=== PATIENT | male | born 1995 | race Caucasian/White ===

== ENCOUNTER 2017-04-24 23:41 | Inpatient (IN) | payer MEDICARE ==
--- NOTE | 2017-04-25 00:28 | PDOC ---
History of Present Illness - General History Source: Patient Exam Limitations: No Limitations - History of Present Illness Initial Comments: Patient is an otherwise healthy 21 year old male with one day of left sided neck pain and swelling. First noticed pain in the left side of his neck one day ago that began to feel swollen. The pain is isolated to the left-sided below the angle of the mandible. Denies any trauma, dental procedures, tooth pain, mouth pain, sick contacts Denies fever, chills 04/25/17 00:41 <Ebenezer Higgins - Last Filed: 04/25/17 04:27> <Sanjuana Ramos - Last Filed: 04/25/17 04:59> - General Stated Complaint: SWOLLEN NECK Time Seen by Provider: 04/25/17 00:27 Past History - Suicide/Smoking/Psychosocial Hx Smoking Status: No Smoking History: Never smoked Number of Cigarettes Smoked Daily: 0 <Ebenezer Higgins - Last Filed: 04/25/17 04:27> <Sanjuana Ramos - Last Filed: 04/25/17 04:59> - Past Medical History Allergies/Adverse Reactions: Allergies Allergy/AdvReac Type Severity Reaction Status Date / Time No Known Allergies Allergy Verified 04/25/17 00:30 Home Medications: Ambulatory Orders Oxycodone HCl/Acetaminophen [Percocet 5/325 -] 1 combo PO Q6H #15 tablet *Physical Exam - Vital Signs Last Vital Signs Temp Pulse Resp BP Pulse Ox 98.6 F 70 20 125/63 99 04/25/17 00:30 04/25/17 00:30 04/25/17 00:30 04/25/17 00:30 04/25/17 04:35 <Sanjuana Ramos - Last Filed: 04/25/17 04:59> ED Treatment Course - LABORATORY CBC & Chemistry Diagram: 04/25/17 00:47 04/25/17 00:47 - RADIOLOGY Radiograph Interpretation: 04/25/17 03:48 EXAM: CT SOFT TISSUE NECK WITHOUT CONTRAST HISTORY:Left-sided pain COMPARISON: None. FINDINGS:The visualized intracranial and intraorbital contents are normal. Normal salivary glands and thyroid gland. There is soft tissue edema adjacent to posterior left mandible involving the platysma muscle and extending to the sternocleidomastoid muscle. There is ill- defined fluid but no abscess. Infection is suspected. No concerning adenopathy. Normal parapharyngeal retropharyngeal space. Normal epiglottis and vocal cords. Lung apices are clear. Sinuses and mastoid air cells clear. The bones are normal. IMPRESSION: Probable soft tissue infection involving the left aspect of the neck without abscess <Ebenezer Higgins - Last Filed: 04/25/17 04:27> - LABORATORY CBC & Chemistry Diagram: 04/25/17 00:47 04/25/17 00:47 - ADDITIONAL ORDERS Additional order review: Laboratory Results 04/25/17 04/25/17 04:14 00:47 PT with INR 12.10 H INR 1.07 Sodium 141 Potassium 4.1 Chloride 105 Carbon Dioxide 28 Anion Gap 8 BUN 16 Creatinine 1.1 D Creat Clearance w eGFR > 60 Random Glucose 93 Calcium 8.3 L Total Bilirubin 0.3 D AST 17 D ALT 26 Alkaline Phosphatase 54 D Total Protein 6.8 Albumin 3.8 04/25/17 00:47 RBC 4.62 MCV 90.6 MCHC 33.8 RDW 13.3 MPV 11.1 Neutrophils % 66.0 Lymphocytes % 22.4 D Monocytes % 9.7 Eosinophils % 1.6 Basophils % 0.3 - RADIOLOGY Radiology Studies Ordered: Category Date Time Status CHEST PA & LAT [RAD] Stat Radiology 04/25/17 04:40 Ordered - Medications Given in the ED: ED Medications Discontinued Medications Generic Name Dose Route Start Last Admin Trade Name Freq PRN Reason Stop Dose Admin Acetaminophen 1,000 mg 04/25/17 01:12 04/25/17 01:21 Tylenol - PO 04/25/17 01:13 1,000 mg ONCE ONE Administration Clindamycin Phosphate 300 mg/ 50 mls @ 100 mls/hr 04/25/17 04:06 04/25/17 04:31 Dextrose IVPB 04/25/17 04:35 Not Given ONCE ONE Metronidazole 100 mls @ 100 mls/hr 04/25/17 04:07 04/25/17 04:31 Flagyl 500mg Premixed Ivpb - IVPB 04/25/17 05:06 Not Given ONCE ONE <Sanjuana Ramos - Last Filed: 04/25/17 04:59> Medical Decision Making - Medical Decision Making 21 year old male with left sided neck pain and swelling for one day ddx abscess, parotid stone, sialadenitis 04/25/17 01:29 CBC WBC 14.3 K/mm3 (4.0-10.0) H D 04/25/17 00:47 RBC 4.62 M/mm3 (4.00-5.60) 04/25/17 00:47 Hgb 14.1 GM/dL (11.7-16.9) 04/25/17 00:47 Hct 41.9 % (35.4-49) 04/25/17 00:47 MCV 90.6 fl (80-96) 04/25/17 00:47 MCH 30.6 pg (25.7-33.7) 04/25/17 00:47 MCHC 33.8 g/dl (32.0-35.9) 04/25/17 00:47 RDW 13.3 % (11.9-15.9) 04/25/17 00:47 Plt Count 143 K/MM3 (134-434) 04/25/17 00:47 MPV 11.1 fl (7.5-11.1) 04/25/17 00:47 Neutrophils % 66.0 % (42.8-82.8) 04/25/17 00:47 Lymphocytes % 22.4 % (8-40) D 04/25/17 00:47 Monocytes % 9.7 % (3.8-10.2) 04/25/17 00:47 Eosinophils % 1.6 % (0-4.5) 04/25/17 00:47 Basophils % 0.3 % (0-2.0) 04/25/17 00:47 Significant for mild leukocytosis, concern for infection CMP Sodium 141 mmol/L (136-145) 04/25/17 00:47 Potassium 4.1 mmol/L (3.5-5.1) 04/25/17 00:47 Chloride 105 mmol/L (98-107) 04/25/17 00:47 Carbon Dioxide 28 mmol/L (21-32) 04/25/17 00:47 Anion Gap 8 (8-16) 04/25/17 00:47 BUN 16 mg/dL (7-18) 04/25/17 00:47 Creatinine 1.1 mg/dL (0.7-1.3) D 04/25/17 00:47 Creat Clearance w eGFR > 60 (>60) 04/25/17 00:47 Random Glucose 93 mg/dL (74-106) 04/25/17 00:47 Calcium 8.3 mg/dL (8.5-10.1) L 04/25/17 00:47 Total Bilirubin 0.3 mg/dL (0.2-1.0) D 04/25/17 00:47 AST 17 U/L (15-37) D 04/25/17 00:47 ALT 26 U/L (12-78) 04/25/17 00:47 Alkaline Phosphatase 54 U/L (45-117) D 04/25/17 00:47 Total Protein 6.8 g/dl (6.4-8.2) 04/25/17 00:47 Albumin 3.8 g/dl (3.4-5.0) 04/25/17 00:47 Grossly within normal limits, mild hypocalcemia 04/25/17 02:25 CT IMPRESSION: Probable soft tissue infection involving the left aspect of the neck without abscess Infection developing over two days Patient should be started on abx and admitted for evaluation by ENT 04/25/17 04:27 Spoke with ENT, Dr. Tavarez, who agrees the the quick onset and location of the infection warrents IV abx Recommends the following - Admission - ID consult - ENT consult <Ebenezer Higgins - Last Filed: 04/25/17 04:27> *DC/Admit/Observation/Transfer - Discharge Dispostion Admit: Yes <Ebenezer Higgins - Last Filed: 04/25/17 04:27> - Discharge Dispostion Admit: Yes <Sanjuana Ramos - Last Filed: 04/25/17 04:59> Diagnosis at time of Disposition: Submandibular space infection - Discharge Dispostion Condition at time of disposition: Guarded
[2017-04-25 00:59] LABS: BASOPHIL 0.3 % (0-2.0); EOSINOPHIL 1.6 % (0-4.5); MCH 30.6 pg (25.7-33.7); MCHC 33.8 g/dl (32.0-35.9); MEAN CELL VOLUME 90.6 fl (80-96); MEAN PLT VOLUME 11.1 fl (7.5-11.1); PLATELET COUNT 143 K/MM3 (134-434); RDW 13.3 % (11.9-15.9); WHITE BLOOD COUNT 14.3 K/mm3 (4.0-10.0)
[2017-04-25] MEDS ORDERED: ACETAMINOPHEN 500 MG TABLET (FP) PO ONE (01:12)
[2017-04-25] MEDS ORDERED: ACETAMINOPHEN 325 MG TABLET (FP) ONE (01:20)
[2017-04-25 01:22] LABS: ALBUMIN 3.8 g/dl (3.4-5.0); ANION GAP 8 (8-16); CALCIUM 8.3 mg/dL (8.5-10.1); CO2 28 mmol/L (21-32); CREATININE 1.1 mg/dL (0.7-1.3); GLUCOSE,RANDOM 93 mg/dL (74-106); SGOT/AST 17 U/L (15-37); SGPT/ALT 26 U/L (12-78)
[2017-04-25 01:23] LABS: ALK PHOS 54 U/L (45-117); BILIRUBIN,TOTAL 0.3 mg/dL (0.2-1.0); TOT PROT 6.8 g/dl (6.4-8.2)
[2017-04-25] MEDS ORDERED: CLINDAMYCIN IVPB 300 MG in DEXTROSE 5%-WATER - 48 ML IVPB ONE (04:06)
[2017-04-25] MEDS ORDERED: METRONIDAZOLE 500 MG PREMIXED 100 ML IVPB ONE (04:07)
--- NOTE | 2017-04-25 04:13 | PN ---
Teaching Attending Note Name of Resident: Jnae Miller ATTENDING PHYSICIAN STATEMENT I saw and evaluated the patient. I reviewed the resident's note and discussed the case with the resident. I agree with the resident's findings and plan as documented. SUBJECTIVE: 21 yo M with no pmhx who presents with Left neck swelling X2 days. States he has trouble opening his mouth due to pain. No drooling, no fevers, no dysphagia. N0 chest pain or pressure. Of note: Pt.s girlfried told internet marketing specialist that they were wrestling and he hit his neck on his bed. OBJECTIVE: Physical: VS: Vital Signs Period Temp Pulse Resp BP Sys/Boyd Pulse Ox Last 24 Hr 98.6 F 70 20 125/63 98-99 GEN: nAd, resting in bed HEENT: NCAT, PERRL throat without erythema or exudates, 5x7cm neck mass, tender to palpation, throat clear without erythema or exudates CARD: RRR S1, S2 RESP: CTAB ABD: BSx4, NTD to Palpation EXT: - C/C/E CBCD WBC 14.3 K/mm3 (4.0-10.0) H D 04/25/17 00:47 RBC 4.62 M/mm3 (4.00-5.60) 04/25/17 00:47 Hgb 14.1 GM/dL (11.7-16.9) 04/25/17 00:47 Hct 41.9 % (35.4-49) 04/25/17 00:47 MCV 90.6 fl (80-96) 04/25/17 00:47 MCHC 33.8 g/dl (32.0-35.9) 04/25/17 00:47 RDW 13.3 % (11.9-15.9) 04/25/17 00:47 Plt Count 143 K/MM3 (134-434) 04/25/17 00:47 MPV 11.1 fl (7.5-11.1) 04/25/17 00:47 CMP Sodium 141 mmol/L (136-145) 04/25/17 00:47 Potassium 4.1 mmol/L (3.5-5.1) 04/25/17 00:47 Chloride 105 mmol/L (98-107) 04/25/17 00:47 Carbon Dioxide 28 mmol/L (21-32) 04/25/17 00:47 Anion Gap 8 (8-16) 04/25/17 00:47 BUN 16 mg/dL (7-18) 04/25/17 00:47 Creatinine 1.1 mg/dL (0.7-1.3) D 04/25/17 00:47 Creat Clearance w eGFR > 60 (>60) 04/25/17 00:47 Random Glucose 93 mg/dL (74-106) 04/25/17 00:47 Calcium 8.3 mg/dL (8.5-10.1) L 04/25/17 00:47 Total Bilirubin 0.3 mg/dL (0.2-1.0) D 04/25/17 00:47 AST 17 U/L (15-37) D 04/25/17 00:47 ALT 26 U/L (12-78) 04/25/17 00:47 Alkaline Phosphatase 54 U/L (45-117) D 04/25/17 00:47 Total Protein 6.8 g/dl (6.4-8.2) 04/25/17 00:47 Albumin 3.8 g/dl (3.4-5.0) 04/25/17 00:47 04/25/17 03:48 EXAM: CT SOFT TISSUE NECK WITHOUT CONTRAST HISTORY:Left-sided pain COMPARISON: None. FINDINGS:The visualized intracranial and intraorbital contents are normal. Normal salivary glands and thyroid gland. There is soft tissue edema adjacent to posterior left mandible involving the platysma muscle and extending to the sternocleidomastoid muscle. There is ill- defined fluid but no abscess. Infection is suspected. No concerning adenopathy. Normal parapharyngeal retropharyngeal space. Normal epiglottis and vocal cords. Lung apices are clear. Sinuses and mastoid air cells clear. The bones are normal. IMPRESSION: Probable soft tissue infection involving the left aspect of the neck without abscess ASSESSMENT AND PLAN: 21 yo M with no pmhx who presents with neck mass 1.) Neck Mass- DDx Ludwigs Angina/Trauma - Clindamycin 600 Q8 - ENT Consulted - ID consult - Repeat bloodwork 2.) Dvt PPx - Low Risk - SCDs
--- NOTE | 2017-04-25 04:17 | PDOC ---
Attending Attestation - Resident Resident Name: Ebenezer Higgins - HPI HPI: 04/25/17 04:17 Pt comes with a mass to the left submandibular area that began 2 days ago. States that he has never had this before. Now painful and tender to the touch. Fluctuant areas and solid areas to the mass. Pt is afebrile. He has no history of salivary duct stone. Pt has no dental caries, but he has halitosis and likely has a dental component to this mass/infection under the jaw. 04/25/17 04:18 Patient Name: ALVAREZ CLARKE THIS IS A PRELIMINARY REPORT FROM [facility] CHIEF DATE OF SERVICE: 2017-04-25 02:24:50 IMAGES: [id number] EXAM: CT SOFT TISSUE NECK WITHOUT CONTRAST HISTORY:Left-sided pain COMPARISON: None. FINDINGS:The visualized intracranial and intraorbital contents are normal. Normal salivary glands and thyroid gland. There is soft tissue edema adjacent to posterior left mandible involving the platysma muscle and extending to the sternocleidomastoid muscle. There is ill- defined fluid but no abscess. Infection is suspected. No concerning adenopathy. Normal parapharyngeal retropharyngeal space. Normal epiglottis and vocal cords. Lung apices are clear. Sinuses and mastoid air cells clear. The bones are normal. IMPRESSION: Probable soft tissue infection involving the left aspect of the neck without abscess or mass. THIS DOCUMENT HAS BEEN ELECTRONICALLY SIGNED - Physicial Exam PE: 04/25/17 04:21 agree with resident exam - Medical Decision Making 04/25/17 04:21 pre-op labs; clindamycin abx coverage; page ENT; admit to hospitalist. Pt will likely require CTA neck 04/25/17 04:53 THIS IS A PRELIMINARY REPORT FROM [facility] CHIEF DATE OF SERVICE: 2017-04-25 02:24:50 IMAGES: [id number] EXAM: CT SOFT TISSUE NECK WITHOUT CONTRAST HISTORY:Left-sided pain COMPARISON: None. FINDINGS:The visualized intracranial and intraorbital contents are normal. Normal salivary glands and thyroid gland. There is soft tissue edema adjacent to posterior left mandible involving the platysma muscle and extending to the sternocleidomastoid muscle. There is ill- defined fluid but no abscess. Infection is suspected. No concerning adenopathy. Normal parapharyngeal retropharyngeal space. Normal epiglottis and vocal cords. Lung apices are clear. Sinuses and mastoid air cells clear. The bones are normal.
[2017-04-25] MEDS ORDERED: CLINDAMYCIN 600MG PREMIX IVPB 50 ML IVPB ONE ×2 (04:22→09:41)
[2017-04-25 04:39] LABS: INR 1.07 (0.82-1.09); PROTHROMBIN TIME (PATIENT) 12.1 SEC (9.98-11.88)
[2017-04-25] MEDS ORDERED: SODIUM CHLORIDE 1,000 ML IV STA (04:54)
[2017-04-25] MEDS ORDERED: IBUPROFEN 600 MG TABLET (FP) PO PRN (04:56)
--- NOTE | 2017-04-25 04:58 | HP ---
Admitting History and Physical - Primary Care Physician PCP: Juan F Barajas - Admission History of Present Illness: 21M no significant medical history presents to the ED with a 2 day history of left neck pain swelling and tenderness. Patient reports he wok up 2 mornings ago and felt like he had a still neck from sleeping wrong. His neck continued to get more and more sore until he started noticing some swelling. He then stated other people were noticing his left neck more swollen than the right side of the neck. He denies nausea vomiting fevers chills chest pain or shortness of breath. No GI or symptoms. Patient's girlfriend admits they were wrestling 3 days ago and he fell and hit that side of his neck on the box spring of the bed and the next day is when his symptoms started. He denies recent infection, sick contacts, taking any medication, airway compromise, trouble swallowing solids or liquids. He denies dental infections/abscesses he denies any changes to his voice. He denies high risk behaviors denies IV drug abuse History Source: Patient, Medical Record Limitations to Obtaining History: No Limitations - Past Medical History Additional Past Medical History: PTSD ADHD as a child - Past Surgical History Additional Past Surgical History: tib/fib fracture s/p repair 2 screws in left knee - Smoking History Smoking history: Current every day smoker Have you smoked in the past 12 months: Yes Aproximately how many cigarettes per day: 6 - Alcohol/Substance Use Hx Alcohol Use: No History of Substance Use: reports: None Home Medications - Allergies Allergies/Adverse Reactions: Allergies Allergy/AdvReac Type Severity Reaction Status Date / Time No Known Allergies Allergy Verified 04/25/17 00:30 Review of Systems - Review of Systems Constitutional: reports: No Symptoms Eyes: reports: No Symptoms HENT: reports: Other (left neck swelling with mass) Neck: reports: Tenderness (left. hurts to open mouth all the way) Cardiovascular: reports: No Symptoms Respiratory: reports: No Symptoms Gastrointestinal: reports: No Symptoms Genitourinary: reports: No Symptoms Integumentary: reports: No Symptoms Endocrine: reports: No Symptoms Hematology/Lymphatic: reports: No Symptoms Psychiatric: reports: No Symptoms Physical Examination Vital Signs: Vital Signs Temperature 98.6 F 04/25/17 00:30 Pulse Rate 70 04/25/17 00:30 Respiratory Rate 20 04/25/17 00:30 Blood Pressure 125/63 04/25/17 00:30 O2 Sat by Pulse Oximetry (%) 99 04/25/17 04:35 Constitutional: Yes: Well Nourished, No Distress, Calm Eyes: Yes: Conjunctiva Clear, EOM Intact HENT: Yes: Atraumatic, Normocephalic, Pharyngeal Erythema (slight left posterior ). No: Drooling, Epistaxis, Hoarseness Neck: Yes: Supple, Trachea Midline, Tenderness (left neck swelling and tenderness starting from angle of the mandible to the just above the clavicle. There is a discrete lump on the left submandibular region) Cardiovascular: Yes: Regular Rate and Rhythm. No: Murmur Respiratory: Yes: Regular, CTA Bilaterally Gastrointestinal: Yes: Normal Bowel Sounds, Soft. No: Tenderness Extremities: Yes: Other (did not appreciate any other lymphadenopathy in the axilla or groin) Edema: No Neurological: Yes: Alert, Oriented, Cran Nerves II-XII Intact ...Motor Strength: WNL Psychiatric: Yes: Alert, Oriented Labs: CBC, BMP 04/25/17 00:47 04/25/17 00:47 Imaging - Results Cat Scan: Report Reviewed, Image Reviewed Assessment/Plan 21M with no PMH presents with left sided neck swelling for 2 days. Problem list: Left neck mass-ludwigs angina vs trauma vs other soft tissue infection- no discernible abscess seen PTSD ADHD Plan: admit to med/surg inpatient NPO IVF Clindamycin ID consult ENT consult repeat labs NSAIDs monospot test DVT PPx Case discussed with attending and admitting summer internship Full H&P to follow Visit type - Emergency Visit Emergency Visit: Yes Care time: The patient presented to the Emergency Department on the above date and was hospitalized for further evaluation of their emergent condition. - New Patient This patient is new to me today: Yes Date on this admission: 04/25/17 - Critical Care Critical Care patient: No
[2017-04-25] MEDS ORDERED: SODIUM CHLORIDE 1,000 ML IV SCH (05:00)
[2017-04-25] MEDS ORDERED: HEPARIN NA (PORCINE) 5,000 UNITS/ML 1ML VIAL ONE (05:25)
[2017-04-25] MEDS: HEPARIN NA (PORCINE) 5,000 UNITS/ML 1ML VIAL SQ SCH ×2 (05:30→10:43)
--- NOTE | 2017-04-25 05:44 | HP ---
CHIEF COMPLAINT: neck pain and swelling PCP: Dr. Juan F Barajas HISTORY OF PRESENT ILLNESS: 21yo M with no significant PMH presents c/o neck pain and swelling x 2 days. Pain and swelling originated inferior to the Left angle of the mandible, and now the pain (but not the edema) has spread down the Left side of his neck. Pt admits to wrestling with his girlfriend and hitting this area of his neck on the bedspring. The following morning pt woke up with pain in this area followed by the development of the swelling. Pt denies ever having symptoms like these before. Pt took Tylenol at home which did help mitigate the pain. Pain is worse with movement. Pain is described as a sharp, constant pain, rated 10/10 at its peak. Pt denies dental procedures, tooth abscess, fever, chills. Pt denies dysphagia, throat swelling, dyspnea, nausea, vomiting. ER course was notable for: (1) Tylenol 1,000mg PO once -> pain now rated 6/10 (2) CT Soft Tissue Neck -> reveals soft tissue infection involving the Left aspect of the neck and no abscess. (3) WBC 14.3, VS wnl PAST MEDICAL HISTORY: none Psych Hx: PTSD ADHD PAST SURGICAL HISTORY: tib-fib fx with 2 screws in Left knee Social History: Smokin cigarettes / day x 3 yrs Alcohol: occasional Drugs: none Allergies No Known Allergies Allergy (Verified 04/25/17 00:30) HOME MEDICATIONS: none REVIEW OF SYSTEMS CONSTITUTIONAL: Absent: fever, chills, diaphoresis HEENT: Absent: rhinorrhea, nasal congestion, throat pain, throat swelling, difficulty swallowing, mouth swelling, ear pain, eye pain, visual changes CARDIOVASCULAR: Absent: chest pain, palpitations, irregular heart rate RESPIRATORY: Absent: cough, shortness of breath, dyspnea with exertion, orthopnea, wheezing, stridor GASTROINTESTINAL: Absent: abdominal pain, abdominal distension, nausea, vomiting, diarrhea, constipation GENITOURINARY: Absent: dysuria, genital pain MUSCULOSKELETAL: Present: neck pain Absent: myalgia, arthralgia, joint swelling, back pain SKIN: Absent: rash, itching, pallor HEMATOLOGIC/IMMUNOLOGIC: Absent: easy bleeding, easy bruising, lymphadenopathy, frequent infections NEUROLOGIC: Absent: headache, focal weakness or paresthesias PSYCHIATRIC: Absent: anxiety, depression PHYSICAL EXAMINATION Vital Signs - 24 hr 04/25/17 04/25/17 00:30 04:35 Temperature 98.6 F Pulse Rate 70 Respiratory 20 Rate Blood Pressure 125/63 O2 Sat by Pulse 98 99 Oximetry (%) GENERAL: Awake, alert, and fully oriented, in no acute distress. HEAD: Normal with no signs of trauma. EYES: Extraocular movements intact, sclera anicteric, conjunctiva clear. No lid lag. EARS, NOSE, THROAT: slight pharyngeal erythema to Left posterior palate. Moist mucous membranes. No drooling, hoarseness, dysphagia. NECK: supple, trachea midline. Tenderness from Left side angle of mandible to Left clavicle. Swelling inferior to Left angle of mandible. Reduced range of motion 2/2 pain. LUNGS: Breath sounds equal, clear to auscultation bilaterally. No wheezes, and no crackles. No accessory muscle use. HEART: Regular rate and rhythm, normal S1 and S2 without murmur, rub or gallop. ABDOMEN: Soft, nontender, not distended, normoactive bowel sounds, no guarding, no rebound, no masses. MUSCULOSKELETAL: No muscle pain. Motor strength wnl. LOWER EXTREMITIES: Warm, well-perfused. No peripheral edema. NEUROLOGICAL: Cranial nerves II-XII intact. Normal speech. PSYCHIATRIC: Cooperative. Good eye contact. Appropriate mood and affect. SKIN: Warm, dry, normal turgor, no rashes or lesions noted. Laboratory Last Values WBC 14.3 K/mm3 (4.0-10.0) H D 04/25/17 00:47 RBC 4.62 M/mm3 (4.00-5.60) 04/25/17 00:47 Hgb 14.1 GM/dL (11.7-16.9) 04/25/17 00:47 Hct 41.9 % (35.4-49) 04/25/17 00:47 MCV 90.6 fl (80-96) 04/25/17 00:47 MCH 30.6 pg (25.7-33.7) 04/25/17 00:47 MCHC 33.8 g/dl (32.0-35.9) 04/25/17 00:47 RDW 13.3 % (11.9-15.9) 04/25/17 00:47 Plt Count 143 K/MM3 (134-434) 04/25/17 00:47 MPV 11.1 fl (7.5-11.1) 04/25/17 00:47 Neutrophils % 66.0 % (42.8-82.8) 04/25/17 00:47 Lymphocytes % 22.4 % (8-40) D 04/25/17 00:47 Monocytes % 9.7 % (3.8-10.2) 04/25/17 00:47 Eosinophils % 1.6 % (0-4.5) 04/25/17 00:47 Basophils % 0.3 % (0-2.0) 04/25/17 00:47 PT with INR 12.10 SEC (9.98-11.88) H 04/25/17 04:14 INR 1.07 (0.82-1.09) 04/25/17 04:14 Sodium 141 mmol/L (136-145) 04/25/17 00:47 Potassium 4.1 mmol/L (3.5-5.1) 04/25/17 00:47 Chloride 105 mmol/L (98-107) 04/25/17 00:47 Carbon Dioxide 28 mmol/L (21-32) 04/25/17 00:47 Anion Gap 8 (8-16) 04/25/17 00:47 BUN 16 mg/dL (7-18) 04/25/17 00:47 Creatinine 1.1 mg/dL (0.7-1.3) D 04/25/17 00:47 Creat Clearance w eGFR > 60 (>60) 04/25/17 00:47 Random Glucose 93 mg/dL (74-106) 04/25/17 00:47 Calcium 8.3 mg/dL (8.5-10.1) L 04/25/17 00:47 Total Bilirubin 0.3 mg/dL (0.2-1.0) D 04/25/17 00:47 AST 17 U/L (15-37) D 04/25/17 00:47 ALT 26 U/L (12-78) 04/25/17 00:47 Alkaline Phosphatase 54 U/L (45-117) D 04/25/17 00:47 Total Protein 6.8 g/dl (6.4-8.2) 04/25/17 00:47 Albumin 3.8 g/dl (3.4-5.0) 04/25/17 00:47 Blood Type B POSITIVE 04/25/17 04:14 Antibody Screen Negative 04/25/17 04:14 IMAGIN04/25/17 CT Soft Tissue Neck -> soft tissue infection involving the Left aspect of the neck and no abscess. ASSESSMENT/PLAN: 21yo M with no significant PMH presents c/o neck pain and swelling 1) neck pain and swelling - likely 2/2 trauma vs abscess vs sialadenitis vs mono - ENT Consulted (Dr. Tavarez / Dr. Torres) - recommendations appreciated -> admit to Med-Surg, antibiotics, ID Consult - Clindamycin 600mg IVPB q6hr - ID Consult (Dr. Soto) - f/u monoscreen - pain control with Ibuprofen 2) FEN - Fluids: NS @ 100 ml/hr - Electrolytes: wnl, continue to monitor - Nutrition: npo, pending ENT eval 3) prophylaxis - DVT propylaxis with Heparin 5,000U SQ q8hr Visit type - Emergency Visit Emergency Visit: Yes Care time: The patient presented to the Emergency Department on the above date and was hospitalized for further evaluation of their emergent condition. - New Patient This patient is new to me today: Yes Date on this admission: 04/25/17 - Critical Care Critical Care patient: No
--- NOTE | 2017-04-25 08:23 | PN ---
Progress Note (short form) - Note Progress Note: ID Went to see patient and he refused to allow me to talk with him Kindly consult me informally for any assistance and I will try and help Thanks anyway Dex WEINSTEIN
[2017-04-25] MEDS ORDERED: CLINDAMYCIN 600MG PREMIX IVPB 50 ML IVPB SCH (09:00)
[2017-04-25 09:51] LABS: MCH 30.1 pg (25.7-33.7); MEAN CELL VOLUME 91.4 fl (80-96); MEAN PLT VOLUME 10.6 fl (7.5-11.1); PLATELET COUNT 144 K/MM3 (134-434); RDW 13.7 % (11.9-15.9)
[2017-04-25 10:15] LABS: ANION GAP 4 (8-16); CALCIUM 8.3 mg/dL (8.5-10.1); CO2 29 mmol/L (21-32); GLUCOSE,RANDOM 86 mg/dL (74-106)
--- NOTE | 2017-04-25 10:16 | PN ---
Teaching Attending Note Name of Resident: Danya Alexander ATTENDING PHYSICIAN STATEMENT I saw and evaluated the patient. I reviewed the resident's note and discussed the case with the resident. I agree with the resident's findings and plan as documented. SUBJECTIVE: Reports improvement in pain which is now 4/10, swelling significantly improved . Able to swallow. Denies SOB OBJECTIVE: Vital Signs Temperature 97.5 F L 04/25/17 06:22 Pulse Rate 60 04/25/17 06:22 Respiratory Rate 18 04/25/17 06:22 Blood Pressure 133/71 04/25/17 06:22 O2 Sat by Pulse Oximetry (%) 99 04/25/17 07:10 Neck: Yes: Supple, Trachea Midline, mild tenderness and swelling of left submandibular area. OP clear CBC, BMP 04/25/17 09:35 ASSESSMENT AND PLAN: 1. Acute Left sided Parotitis - improving on IV clindamycin , afebrile , leukocytosis improving - mono screen pending but unlikley - start diet - switch to po clinda to complete 5 days - D/C home is ok with ENT f/u with ENT as outpatient
[2017-04-25] MEDS ORDERED: IBUPROFEN 600 MG TABLET (FP) PO ONE (14:44)
--- NOTE | 2017-04-25 15:48 | DS ---
Physical Exam: SUBJECTIVE: Patient seen and examined. No acute events overnight. Pt reports minimal pain and swelling on the left side of his neck. He denies dysphagia, dyspnea, chest pain, abdominal pain, n/v/ d/c, and dysuria. OBJECTIVE: Vital Signs Period Temp Pulse Resp BP Sys/Boyd Pulse Ox Last 24 Hr 97.5 F-99.0 F 60-66 18-20 133-150/71-80 98-100 PHYSICAL EXAM GENERAL: The patient is awake, alert, and fully oriented, in no acute distress. HEAD: Normal with no signs of trauma. EYES: PERRL, extraocular movements intact, sclera anicteric, conjunctiva clear. ENT: Ears normal, nares patent, oropharynx clear without exudates, moist mucous membranes, normal dentition NECK: mass inferior to left angle of mandible, minimally tender to palpation, non-fluctuant LUNGS: Breath sounds equal, clear to auscultation bilaterally, no wheezes, no crackles, no accessory muscle use. HEART: Regular rate and rhythm, S1, S2 without murmur, rub or gallop. ABDOMEN: Soft, nontender, nondistended, normoactive bowel sounds, no guarding, no rebound, no hepatosplenomegaly, no masses. EXTREMITIES: 2+ pulses, warm, well-perfused, no edema. NEUROLOGICAL: Cranial nerves II through XII grossly intact. Normal speech, gait not observed. PSYCH: Normal mood, normal affect. SKIN: Warm, dry, normal turgor, no rashes or lesions noted. LABS Laboratory Results - last 24 hr 04/25/17 04/25/17 09:35 09:35 WBC 11.0 H RBC 4.87 Hgb 14.7 Hct 44.5 MCV 91.4 MCH 30.1 MCHC 33.0 RDW 13.7 Plt Count 144 MPV 10.6 Sodium 141 Potassium 4.4 Chloride 108 H Carbon Dioxide 29 Anion Gap 4 L BUN 13 Creatinine 1.0 Random Glucose [address] Neck: heterogeneous attenuation of the superficial lobe of the left parotid, possibly 2/2 acute parotiditis. Cervical lymphadenopathy. Thickening of left platysma muscle w/ overlying subcutaneous fat stranding and confluent edema in the deep spaces of the neck. HOSPITAL COURSE: Date of Admission:04/25/17 Date of Discharge: 04/25/17 21M w/ no significant PMH who presented with left neck pain and swelling, was found to have a leukocytosis and likely parotiditis on CT, admitted for acute parotiditis. Pt received IV clindamycin, pain control, and fluids. Pt's leukocytosis almost resolved, he is afebrile with normal vitals, and he is stable. Per Dr. Vitaliy Torres, pt can be discharged on PO clindamycin (10 day course) and follow up with him as an outpatient in several days. Pt instructed to drink plenty of fluids, use warm compresses, massage gland from posterior to anterior, and eat foods which increase salivation. -Rafiq Bull MD PGY1 Discharge Summary Reason For Visit: SUBMANDIBULAR SPACE INFECTION Current Active Problems Submandibular space infection (Acute) ADHD (Chronic) PTSD (post-traumatic stress disorder) (Chronic) Condition: Stable - Instructions Diet, Activity, Other Instructions: Your neck swelling and pain is likely due to an infection of your parotid gland. Continue taking clindamycin for a total of 10 days to ensure resolution of your infection. Drink plenty of fluids, use warm compresses, massage the swelling from behind it towards the front of your neck, and eat foods such as lemon wedges which increase salivation. 1. Follow up with Dr. Vitaliy Torres, an ENT physician, within several days. 2. Follow up with your PCP within one week. If you develop any new, worsening, or concerning symptoms such as difficulty breathing, difficulty swallowing, or chest pain, return to the ED. Referrals: Vitaliy Torres MD [Staff Physician] - Disposition: HOME - Home Medications Comprehensive Discharge Medication List: Ambulatory Orders Clindamycin [Cleocin -] 600 mg PO Q6H #80 capsule 04/25/17 This patient is new to me today: Yes Date on this admission: 04/25/17 Emergency Visit: Yes ED Registration Date: 04/25/17 Care time: The patient presented to the Emergency Department on the above date and was hospitalized for further evaluation of their emergent condition. Critical Care patient: No
[2017-04-25 16:18] VITALS: BP 130/73; PULSE 64; TEMP 98.3; BMI 29.2
== END 2017-04-25 16:36 | disposition home or self-care (01) | DRG 115 ==
LOC: JER 23:41 → JERBED 04-25 04:29 → J5S 04-25 15:00
PROVIDERS: ADMIT Internal Medicine; ATTEND Internal Medicine
DX: K11.21 Acute sialoadenitis (principal); E83.51 Hypocalcemia; F43.10 Post-traumatic stress disorder, unspecified; F90.8 Attention-deficit hyperactivity disorder, other type; F17.210 Nicotine dependence, cigarettes, uncomplicated; D72.828 Other elevated white blood cell count; M27.8 Other specified diseases of jaws
CPT/HCPCS: 36415; 70490-TC; 71020-TC; 80048; 80053; 85025; 85027; 85610; 86308; 86850; 86900; 86901; 99285-25; J1644

== ENCOUNTER 2018-02-04 13:17 | Emergency (ER) | payer MEDICARE, OTHER ==
[2018-02-04 13:23] VITALS: BP 147/89; PULSE 96; TEMP 99.2; BMI 29.0
[2018-02-04 13:58] LABS: BASO % 0.3 % (0-2.0); EOS % 1.8 % (0-4.5); MCH 30.2 pg (25.7-33.7); MCHC 34.2 g/dl (32.0-35.9); MEAN CELL VOLUME 88.5 fl (80-96); MEAN PLT VOLUME 10.3 fl (7.5-11.1); NEUT % 68.9 % (42.8-82.8); PLATELET COUNT 143 K/MM3 (134-434); RBC 4.97 M/mm3 (4.00-5.60); RDW 13.5 % (11.9-15.9); WHITE BLOOD COUNT 9.4 K/mm3 (4.0-10.0)
[2018-02-04 14:16] LABS: INR 1.04 (0.82-1.09); PROTHROMBIN TIME (PATIENT) 11.8 SEC (9.7-13.0)
--- NOTE | 2018-02-04 14:21 | PDOC ---
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 NO fever no trauma, denies strenuous activity. Pt states pain worse with movement and with walking up hill felt some SOB. no travel, smokes cigarettes denies any illicit drug use. Presenting Symptoms: Chest Pain Timing/Duration: reports: constant Past History - Travel Traveled outside of the country in the last 30 days: No Close contact w/someone who was outside of country & ill: No - Past Medical History Allergies/Adverse Reactions: Allergies Allergy/AdvReac Type Severity Reaction Status Date / Time No Known Allergies Allergy Verified 02/04/18 13:23 Home Medications: Ambulatory Orders NK [No Known Home Medication] 02/04/18 COPD: No Other medical history: PFO as infant - Immunization History Immunization Up to Date: Yes - Suicide/Smoking/Psychosocial Hx Smoking Status: No Smoking History: Never smoked Have you smoked in the past 12 months: Yes Number of Cigarettes Smoked Daily: 6 Information on smoking cessation initiated: No 'Breaking Loose' booklet given: 04/25/17 Hx Alcohol Use: No Drug/Substance Use Hx: No Substance Use Type: None Hx Substance Use Treatment: No Cardiac Specific PMH - Complaint Specific PMHX Other History: PFO as Review of Systems - Review of Systems Able to Perform ROS?: Yes Is the patient limited Dutch proficient: No Cardiac (ROS): Yes: Symptoms Reported, Chest Pain *Physical Exam - Vital Signs Last Vital Signs Temp Pulse Resp BP Pulse Ox 99.2 F 96 H 18 147/89 99 02/04/18 13:21 02/04/18 13:21 02/04/18 13:21 02/04/18 13:21 02/04/18 13:21 - Physical Exam General Appearance: Yes: Nourished, Appropriately Dressed HEENT: positive: EOMI, [place] Neck: positive: Supple. negative: Tender, Lymphadenopathy (R), Lymphadenopathy (L) Respiratory/Chest: positive: Lungs Clear, Normal Breath Sounds. negative: Chest Tender, Decreased Breath Sounds Cardiovascular: positive: Regular Rhythm, Regular Rate. negative: Murmur Gastrointestinal/Abdominal: positive: Normal Bowel Sounds, Soft Musculoskeletal: positive: Normal Inspection Extremity: positive: Normal Capillary Refill, Normal Inspection, Normal Range of Motion Integumentary: positive: Normal Color, Dry, Diaphoresis Neurologic: positive: Fully Oriented, Alert, Normal Mood/Affect, Normal Response , Motor Strength 5/5 Heart Score/ECG Review - History History: Slightly suspicious - Age Age: </= 45 - Risk Factors Based on the list above the patient has:: No risk factors known #1 ECG reviewed & interpreted by me at: 14:15 General ECG Interpretation: Sinus Rhythm - ECG Intrepretation Rhythm: Regular Rhythm - [place]: Normal - ECG Impressions Normal ECG: Yes ED Treatment Course - LABORATORY CBC & Chemistry Diagram: 02/04/18 13:30 02/04/18 13:30 - ADDITIONAL ORDERS Additional order review: 02/04/18 13:30 RBC 4.97 MCV 88.5 MCHC 34.2 RDW 13.5 MPV 10.3 Neutrophils % 68.9 Lymphocytes % 20.0 Monocytes % 9.0 Eosinophils % 1.8 Basophils % 0.3 - RADIOLOGY Radiology Studies Ordered: Category Date Time Status CHEST CTA [CT] Stat CT Scan 02/04/18 13:44 Taken - Medications Given in the ED: ED Medications Discontinued Medications Generic Name Dose Route Start Last Admin Trade Name Raine PRN Reason Stop Dose Admin Ibuprofen 600 mg 02/04/18 16:42 02/04/18 16:47 Motrin - PO 02/04/18 16:43 600 mg ONCE ONE Administration Medical Decision Making - Medical Decision Making 02/04/18 14:20 cc: right sided chest pain started today worse with walking up hill felt some SOB lying down feels better, sitting up makes pain worse will r/o PE labs, EKG *DC/Admit/Observation/Transfer Diagnosis at time of Disposition: Musculoskeletal chest pain - Discharge Dispostion Disposition: HOME Condition at time of disposition: Good - Referrals Referrals: Anders Day MD [Primary Care Provider] - - Patient Instructions Additional Instructions: your blood work was normal today however you have slightly elevated Liver function tests this needs to be repeated by your doctor and followed up the cat scan was normal today please take motrin (over the counter advil, ibuprofen or motrin) 600mg every 8hrs for pain apply warm compresses to the area of pain every 4hrs for 20-30 minutes follow with your doctor on TUESDAY return to ER if worse - Post Discharge Activity Forms/Work/School Notes: Back to Work
[2018-02-04 14:33] LABS: ALBUMIN 4.2 g/dl (3.4-5.0); ANION GAP 10 (8-16); BILIRUBIN,TOTAL 0.3 mg/dL (0.2-1.0); BLOOD UREA NITROGEN 15 mg/dL (7-18); CALCIUM 9.2 mg/dL (8.5-10.1); CHLORIDE 109 mmol/L (98-107); CO2 22 mmol/L (21-32); GLUCOSE,RANDOM 123 mg/dL (74-106); SGPT/ALT 89 U/L (12-78); SODIUM 141 mmol/L (136-145); TOT PROT 7.8 g/dl (6.4-8.2)
[2018-02-04 14:34] LABS: ALK PHOS 59 U/L (45-117)
[2018-02-04 14:35] LABS: POTASSIUM 4.4 mmol/L (3.5-5.1); SGOT/AST 56 U/L (15-37)
[2018-02-04] MEDS ORDERED: IBUPROFEN 600 MG TABLET (FP) PO ONE ×2 (16:42→16:47)
--- NOTE | 2018-02-06 10:34 | EKG ---
Test Reason : Blood Pressure : / mmHG Vent. Rate : 074 BPM Atrial Rate : 074 BPM P-R Int : 140 ms QRS Dur : 086 ms QT Int : 368 ms P-R-T Axes : 026 021 033 degrees QTc Int : 408 ms NORMAL SINUS RHYTHM NORMAL ECG WHEN COMPARED WITH ECG OF 24-JAN-2007 21:05, NO SIGNIFICANT CHANGE WAS FOUND Confirmed by AMILCAR PATTERSON MD ([id number]) on 02/06/2018 10:33:52 AM Referred By: Confirmed By:AMILCAR PATTERSON MD
== END 2018-02-04 16:54 | disposition home or self-care (01) ==
LOC: JERFT 13:17
DX: R07.89 Other chest pain (principal)
CPT/HCPCS: 36415; 71275-TC; 80053; 85025; 85610; 93005; 93010; 99281-25

== ENCOUNTER 2019-07-03 23:40 | Emergency (ER) | payer SELFPAY ==
[2019-07-04 00:04] VITALS: BMI 28.1
[2019-07-04] MEDS ORDERED: KETOROLAC TROMETHAMINE 30 MG/1 ML VIAL IVPUSH ONE (00:16)
[2019-07-04] MEDS ORDERED: FAMOTIDINE 20 MG/50 ML IVPB 20 MG/50 ML MG IVPB ONE (00:17)
[2019-07-04] MEDS ORDERED: METOCLOPRAMIDE HCL INJECTION 10 MG/2 ML VIAL IVPUSH ONE (00:21)
[2019-07-04] MEDS ORDERED: ALBUTEROL SO4 2.5/IPRATROPIUM 0.5 INH SOL 3 ML VIAL.NEB. NEB ONE (00:32)
--- NOTE | 2019-07-04 00:32 | PDOC ---
History of Present Illness - General Chief Complaint: Cold Symptoms Stated Complaint: COLD SYMPTOMS Time Seen by Provider: 07/04/19 00:07 History Source: Patient Exam Limitations: No Limitations - History of Present Illness Initial Comments: 07/04/19 00:23 Patient is 23-year-old male with history of prolonged QT, heart murmur, left knee fracture with pins and screws, brought by family for complaint of coughing x2 days productive of white sputum, fever x1 day, associated with nausea, vomiting and diarrhea, body ache now 8/10, epigastric pain which started after coughing. Has been taking Motrin today without relief of symptoms however he vomited after taking Motrin. Reports feels weak and fatigue. Denies sore throat. PMHX: as above PSOCHX: (+) cig 10/day, occ etoh, neg drug ALL: NKDA Review of Systems: GENERAL/CONSTITUTIONAL: No fever or chills. No weakness. No weight change. HEAD, EYES, EARS, NOSE AND THROAT: No change in vision. No ear pain or discharge. No sore throat. CARDIOVASCULAR: (+) chest pain (-) shortness of breath. RESPIRATORY: (+) cough, (+) wheezing, (-) hemoptysis. GASTROINTESTINAL: (+) nausea, vomiting, (-) diarrhea or constipation. No rectal bleeding. GENITOURINARY: No dysuria, frequency, or change in urination. MUSCULOSKELETAL: (+) joint or muscle swelling or pain. No neck or back pain. SKIN AND BREASTS: No rash or easy bruising. NEUROLOGIC: (+) headache, (-) vertigo, loss of consciousness, or loss of sensation. PSYCHIATRIC: No depression or anxiety. ENDOCRINE: No increased thirst. No abnormal weight change. HEMATOLOGIC/LYMPHATIC: No anemia, easy bleeding, or history of blood clots. ALLERGIC/IMMUNOLOGIC: No hives or skin allergy. No latex allergy. GENERAL: [The patient is awake, alert, and fully oriented, in mild distress.] HEAD: [Normal with no signs of trauma.] EYES: [Pupils equal, round and reactive to light, extraocular movements intact, sclera anicteric, conjunctiva clear.] ENT: [Ears normal, nares patent, oropharynx clear without exudates. Moist mucous membranes.] NECK: [Normal range of motion, supple without lymphadenopathy, JVD, or masses.] LUNGS: [bilaterally wheezes, and no crackles.] HEART: [Regular rate and rhythm, normal S1 and S2 without murmur, rub.] ABDOMEN: [Soft, nontender, normoactive bowel sounds. No guarding, no rebound. No masses.] EXTREMITIES: [Normal range of motion, no edema. No clubbing or cyanosis. No cords, erythema, or tenderness.] NEUROLOGICAL: [Cranial nerves II through XII grossly intact. Normal speech, normal gait.] PSYCH: [Normal mood, normal affect.] SKIN: [Warm, Dry, normal turgor, no rashes or lesions noted.] Past History - Past Medical History Allergies/Adverse Reactions: Allergies Allergy/AdvReac Type Severity Reaction Status Date / Time No Known Allergies Allergy Verified 07/04/19 00:05 Home Medications: Ambulatory Orders Albuterol Sulfate Inhaler - [Ventolin HFA Inhaler -] 2 inh PO Q4H #1 inh Ibuprofen [Motrin -] 600 mg PO QID #28 tablet 07/04/19 Metoclopramide HCl [Reglan -] 10 mg PO QID #14 tablet 07/04/19 COPD: No - Immunization History Immunization Up to Date: Yes - Psycho Social/Smoking Cessation Hx Smoking Status: No Smoking History: Unknown if ever smoked Have you smoked in the past 12 months: Yes Number of Cigarettes Smoked Daily: 6 'Breaking Loose' booklet given: 04/25/17 Hx Alcohol Use: No Drug/Substance Use Hx: No Substance Use Type: None Hx Substance Use Treatment: No *Physical Exam - Vital Signs Last Vital Signs Temp Pulse Resp BP Pulse Ox 102.9 F H 104 H 20 140/76 98 07/04/19 00:00 07/04/19 00:00 07/04/19 00:00 07/04/19 00:00 07/04/19 00:00 ED Treatment Course - LABORATORY CBC & Chemistry Diagram: 07/04/19 00:13 07/04/19 00:13 - RADIOLOGY Radiology Studies Ordered: Category Date Time Status CHEST PA & LAT [RAD] Stat Radiology 07/04/19 00:16 Ordered - Medications Given in the ED: ED Medications Discontinued Medications Generic Name Dose Route Start Last Admin Trade Name Freq PRN Reason Stop Dose Admin Famotidine/Sodium Chloride 20 mg in 50 mls @ 100 mls/hr 07/04/19 00:17 00:19 Pepcid 20 Mg Premixed Ivpb - IVPB 07/04/19 00:46 Not Given ONCE ONE Medical Decision Making - Medical Decision Making 07/04/19 00:23 Patient is 23-year-old male with history of prolonged QT, heart murmur, left knee fracture with pins and screws, brought by family for complaint of coughing x2 days productive of white sputum, fever x1 day, associated with nausea, vomiting and diarrhea, body ache now 8/10, epigastric pain which started after coughing. Has been taking Motrin today without relief of symptoms however he vomited after taking Motrin. Reports feels weak and fatigue. Denies sore throat. Patient with symptoms of flulike illness Will get labs including influenza swabs, strep swab IV fluids, Toradol Reassess. Patient was p.o. challenge and is tolerating p.o. I discussed the physical exam findings, ancillary test results and final diagnoses with the patient. I answered all of the patient's questions. The patient was satisfied with the care received and felt comfortable with the discharge plan and treatment plan. The Patient agrees to follow up with the primary care physician within 24-72 hours. Discharge - Discharge Information Problems reviewed: Yes Clinical Impression/Diagnosis: Influenza A, Musculoskeletal chest pain, Coughing Nausea & vomiting Qualifiers: Vomiting type: unspecified Vomiting Intractability: unspecified Qualified Code( s): R11.2 - Nausea with vomiting, unspecified Condition: Stable Disposition: HOME - Additional Discharge Information Prescriptions: Albuterol Sulfate Inhaler - [Ventolin HFA Inhaler -] 2 inh PO Q4H #1 inh Ibuprofen [Motrin -] 600 mg PO QID #28 tablet Metoclopramide HCl [Reglan -] 10 mg PO QID #14 tablet - Follow up/Referral Referrals: Juan F Barajas MD [Primary Care Provider] - - Patient Discharge Instructions Patient Printed Discharge Instructions: DI for Influenza -- Adult - Post Discharge Activity Work/Back to School Note: Back to Work
[2019-07-04] MEDS ORDERED: KETOROLAC TROMETHAMINE 30 MG/1 ML VIAL ONE (00:36)
[2019-07-04] MEDS ORDERED: METOCLOPRAMIDE HCL INJECTION 10 MG/2 ML VIAL ONE (00:36)
[2019-07-04 00:48] LABS: BASO % 0.5 % (0-2.0); HEMATOCRIT 42.8 % (35.4-49); HEMOGLOBIN 14.5 GM/dL (11.7-16.9); LYMPH % 8.6 % (8-40); MCH 30.7 pg (25.7-33.7); MCHC 33.8 g/dl (32.0-35.9); MEAN CELL VOLUME 90.8 fl (80-96); MEAN PLT VOLUME 10.6 fl (7.5-11.1); NEUT % 78.9 % (42.8-82.8); PLATELET COUNT 118 K/MM3 (134-434); RBC 4.71 M/mm3 (4.00-5.60); RDW 13.7 % (11.9-15.9); WHITE BLOOD COUNT 10.4 K/mm3 (4.0-10.0)
[2019-07-04 01:08] LABS: ALBUMIN 4.1 g/dl (3.4-5.0); BILIRUBIN,TOTAL 0.2 mg/dL (0.2-1); BLOOD UREA NITROGEN 14.7 mg/dL (7-18); CALCIUM 8.8 mg/dL (8.5-10.1); CREATININE 1.2 mg/dL (0.55-1.3); POTASSIUM 3.9 mmol/L (3.5-5.1); TOT PROT 7.5 g/dl (6.4-8.2)
[2019-07-04 01:39] VITALS: PULSE 100; TEMP 98.6
[2019-07-04 02:23] VITALS: BP 130/73
--- NOTE | 2019-07-06 14:11 | EKG ---
Test Reason : Blood Pressure : / mmHG Vent. Rate : 101 BPM Atrial Rate : 101 BPM P-R Int : 146 ms QRS Dur : 086 ms QT Int : 322 ms P-R-T Axes : 072 031 040 degrees QTc Int : 417 ms SINUS TACHYCARDIA POSSIBLE LEFT ATRIAL ENLARGEMENT WHEN COMPARED WITH ECG OF 04-FEB-2018 14:01, NO SIGNIFICANT CHANGE WAS FOUND Confirmed by ORI MCKINLEY MD ([id number]) on 07/06/2019 2:11:29 PM Referred By: Confirmed By:ORI MCKINLEY MD
== END 2019-07-04 02:28 | disposition home or self-care (01) ==
LOC: JER 23:40
PROC: 3E0F7GC Introduction of Other Therapeutic Substance into Respiratory Tract, Via Natural or Artificial Opening (ICD-10-PCS; principal; 2019-07-03)
PROC: 3E0333Z Introduction of Anti-inflammatory into Peripheral Vein, Percutaneous Approach (ICD-10-PCS; 2019-07-03)
PROC: 3E033GC Introduction of Other Therapeutic Substance into Peripheral Vein, Percutaneous Approach (ICD-10-PCS; 2019-07-03)
DX: J09.X2 Influenza due to identified novel influenza A virus with other respiratory manifestations (principal); R07.9 Chest pain, unspecified
CPT/HCPCS: 36415; 71046-TC-FY; 80053; 85025; 87804; 93005; 93010; 99282-25

== ENCOUNTER 2020-02-25 00:08 | Emergency (ER) | payer SELFPAY ==
[2020-02-25 01:37] VITALS: BP 148/78; PULSE 86; TEMP 98.1; BMI 28.0
[2020-02-25] MEDS ORDERED: IBUPROFEN 600 MG TABLET (FP) PO ONE ×2 (02:21→02:24)
[2020-02-25] MEDS ORDERED: METHOCARBAMOL 500 MG TABLET PO ONE (02:21)
[2020-02-25] MEDS ORDERED: LIDOCAINE 5% TOPICAL PATCH TP ONE (02:21)
[2020-02-25] MEDS ORDERED: METHOCARBAMOL 500 MG TABLET ONE (02:24)
[2020-02-25] MEDS ORDERED: LIDOCAINE 5% TOPICAL PATCH ONE (02:24)
--- NOTE | 2020-02-25 02:24 | PDOC ---
History of Present Illness - General Chief Complaint: Back Pain Stated Complaint: BACK PAIN Time Seen by Provider: 02/25/20 01:42 History Source: Patient Exam Limitations: No Limitations - History of Present Illness Initial Comments: 02/25/20 08:51 24 yo M with no significant past medical history presents to the emergency department with 2 days of back pain. 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 The patient describes the pain as ache like, worsens with truncal movements, located in the right lower back, and does not radiate with a pain score of 5/10. The patient states that he has not taken any relieving agents. Denies the following: fevers, chills, nausea, vomiting, dysur ia, hematuria, urinary frequency, testicular and penile pain, chest pain, SOB, abdominal pain, upper back pain, and leg weakness/decreased sensation, and urinary and bowel incontinence. Past History - Medical History Allergies/Adverse Reactions: Allergies Allergy/AdvReac Type Severity Reaction Status Date / Time No Known Allergies Allergy Verified 02/25/20 01:37 Home Medications: Ambulatory Orders Albuterol Sulfate Inhaler - [Ventolin HFA Inhaler -] 2 inh PO Q4H #1 inh 07/04/19 Ibuprofen [Motrin -] 600 mg PO QID #28 tablet 07/04/19 Metoclopramide HCl [Reglan -] 10 mg PO QID #14 tablet 07/04/19 COPD: No - Immunization History Immunization Up to Date: Yes - Psycho-Social/Smoking History Smoking Status: No Smoking History: Never smoked Have you smoked in the past 12 months: Yes Number of Cigarettes Smoked Daily: 6 'Breaking Loose' booklet given: 04/25/17 - Substance Abuse Hx (Audit-C & DAST Scrn) How often the patient has a drink containing alcohol: Never Score: In Men: 4 or > Positive; In Women: 3 or > Positive: 0 Screen Result (Pos requires Nsg. Audit-10AR): Negative In the last yr the pt used illegal drug/Rx for NonMed reason: No Score: Yes response is considered Positive: 0 Screen Result (Positive result requires Nsg. DAST-10): Negative Review of Systems - Review of Systems Able to Perform ROS?: Yes Is the patient limited Urdu proficient: No Constitutional: No: Chills, Diaphoresis, Fever, Weakness HEENTM: No: Eye Pain, Ear Pain, Nose Pain, Throat Pain Respiratory: No: Cough, Shortness of Breath, Hemoptysis Cardiac (ROS): No: Chest Pain, Lightheadedness ABD/GI: No: Constipated, Diarrhea, Nausea, Rectal Bleeding, Vomiting, Tarry Stools : No: Burning, Dysuria, Hematuria Musculoskeletal: Yes: Back Pain. No: Joint Pain, Neck Pain Integumentary: No: Bruising, Erythema, Rash Neurological: No: Headache, Dizziness Psychiatric: No: Change in Appetite Endocrine: No: Unexplained Weight Loss Hematologic/Lymphatic: No: Anemia *Physical Exam - Vital Signs Last Vital Signs Temp Pulse Resp BP Pulse Ox 98.1 F 86 20 148/78 97 02/25/20 01:34 02/25/20 01:34 02/25/20 01:34 02/25/20 01:34 02/25/20 01:34 - Physical Exam General Appearance: Yes: Nourished, Appropriately Dressed. No: Apparent Distress, Intoxicated HEENT: positive: EOMI, [place], Normal Voice, Symmetrical, Pharynx Normal, Hearing Grossly Normal. negative: Pale Conjunctivae, Scleral Icterus (R), Scleral Icterus (L), Muffled/Hoarse voice, Pharyngeal Erythema, Tonsillar Exudate, Tonsillar Erythema, Nasal Congestion, Rhinorrhea, Sinus Tenderness, Excessive drooling Neck: positive: Trachea midline, Supple. negative: Tender, Lymphadenopathy (R), Lymphadenopathy (L), Tender lateral, Tender midline Respiratory/Chest: positive: Lungs Clear, Normal Breath Sounds. negative: Chest Tender, Respiratory Distress, Accessory Muscle Use Cardiovascular: positive: Regular Rhythm, Regular Rate, S1, S2. negative: Sys tolic Murmur Gastrointestinal/Abdominal: positive: Normal Bowel Sounds, Flat, Soft. negative: Tender, Distended, Guarding, Rebound Lymphatic: negative: Adenopathy Musculoskeletal: positive: Normal Inspection, Other (right paraspinal tenderness at the L4-L4 level. no midline tenderness. no step offs. no rash noted. ). nega tive: CVA Tenderness, Vertebral Tenderness Extremity: positive: Normal Capillary Refill, Normal Inspection, Normal Range of Motion. negative: Tender, Swelling, Calf Tenderness Integumentary: positive: Normal Color, Dry, Warm. 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 Initial vitals: Initial Vital Signs Temp Pulse Resp BP Pulse Ox 98.1 F 86 20 148/78 97 02/25/20 01:34 02/25/20 01:34 02/25/20 01:34 02/25/20 01:34 02/25/20 01:34 Re-assessment: patient had improvement in pain and able to ambulate well without deficits after getting robaxin, motrin, and lidoderm patch. patient has a friend driving his c ar for him and will not be operating the vehicle. Discharge - Discharge Information Problems reviewed: Yes Clinical Impression/Diagnosis: Back pain Qualifiers: Back pain location: thoracic back pain Chronicity: acute Back pain laterality: right Qualified Code(s): M54.6 - Pain in thoracic spine Condition: Stable - Admission No - Follow up/Referral Referrals: Juan F Barajas MD [Primary Care Provider] - [facility] [Provider Group] - Patient Discharge Instructions Patient Printed Discharge Instructions: DI for Low Back Pain Additional Instructions: You were seen in the emergency department for your back pain. Please follow up w ith your primary medical doctor for follow up care. Please return to the emergency department if you have worsening symptoms or new concerning symptoms. Thank you. - Post Discharge Activity Work/Back to School Note: Back to Work
--- NOTE | 2020-02-25 02:36 | PDOC ---
Documentation entered by Jerzy Polk SCRIBE, acting as scribe for Indiana Sanchez MD. Indiana Sanhcez MD: This documentation has been prepared by the ajayibe, Jerzy Polk SCRIBE, under my direction and personally reviewed by me in its entirety. I confirm that the documentation accurately reflects all work, treatment, procedures, and medical decision making performed by me. Attending Attestation - Resident Resident Name: Brayan Ovalles - ED Attending Attestation I have performed the following: I have examined & evaluated the patient, The case was reviewed & discussed with the resident, I agree w/resident's findings & plan, Exceptions are as noted - HPI HPI: 24 yo M presents with L mid-back pain just below his shoulder, occurred after lifting a heavy tub. He states that he did not lift it appropriately. Denies weakness, numbness. Denies any urinary symptoms. - Physicial Exam PE: 02/25/20 01:36 GENERAL: Awake, alert, and fully oriented, in no acute distress HEAD: No signs of trauma EYES: PERRLA, EOMI, sclera anicteric, conjunctiva clear ENT: Auricles normal inspection, hearing grossly normal, nares patent, oropharynx clear without exudates. Moist mucosa NECK: Normal ROM, supple, no lymphadenopathy, JVD, or masses LUNGS: Breath sounds equal, clear to auscultation bilaterally. No wheezes, and no crackles HEART: Regular rate and rhythm, normal S1 and S2, no murmurs, rubs or gallops ABDOMEN: Soft, nontender, normoactive bowel sounds. No guarding, no rebound. No masses. No CVAT EXTREMITIES: Normal range of motion, no edema. No clubbing or cyanosis. No cords, erythema, or tenderness NEUROLOGICAL: Cranial nerves II through XII grossly intact. Normal speech, normal gait SKIN: Warm, Dry, normal turgor, no rashes or lesions noted. BACK: No midline tenderness. +Soft tissue tenderness to L lateral mid-back, just below the scapula. - Medical Decision Making 02/25/20 02:59 Pt with back pain, appears musculoskeletal in nature. Will give analgesic, lidoderm patch, muscle relaxer. Likely DC home when improved. Discharge - Discharge Information Problems reviewed: Yes Clinical Impression/Diagnosis: Back pain Qualifiers: Back pain location: thoracic back pain Chronicity: acute Back pain laterality: right Qualified Code(s): M54.6 - Pain in thoracic spine Condition: Stable - Follow up/Referral Referrals: Juan F Barajas MD [Primary Care Provider] - - Patient Discharge Instructions - Post Discharge Activity
[2020-02-25] MEDS ORDERED: LIDOCAINE PATCH REMOVAL MC SCH (22:00)
== END 2020-02-25 03:14 | disposition home or self-care (01) ==
LOC: JER 00:08
DX: M54.6 Pain in thoracic spine (principal)
CPT/HCPCS: 99283-25

== ENCOUNTER 2020-04-01 13:00 | Emergency (ER) | payer SELFPAY ==
[2020-04-01 13:26] VITALS: BP 149/68; PULSE 92; TEMP 98.4; BMI 28.8
[2020-04-01] MEDS ORDERED: IBUPROFEN 600 MG TABLET (FP) PO ONE (13:50)
--- NOTE | 2020-04-01 13:58 | PDOC ---
Rapid Medical Evaluation Chief Complaint: Respiratory Time Seen by Provider: 04/01/20 13:35 Medical Evaluation: Allergies Allergy/AdvReac Type Severity Reaction Status Date / Time No Known Allergies Allergy Verified 04/01/20 13:24 Vital Signs Temp Pulse Resp BP Pulse Ox 98.4 F 92 H 18 149/68 97 04/01/20 13:24 04/01/20 13:24 04/01/20 13:24 04/01/20 13:24 04/01/20 13:24 04/01/20 13:54 HPI: COVID-19 CDC guideline data points: The patient is a 24-year-old male denies past medical history presents complaining of mild headache, chest congestion, productive cough, subjective fever x 3 days. Denies chills, chest pain, recent travel, known sick contacts, diarrhea, vomiting, abdominal pain or any other complaints. ROS: NEGATIVE: difficulty breathing, shortness of breath, chest pain, lightheadedness, dizziness, nausea, vomiting and diarrhea. Other 12 point ROS reviewed and negative. Exam: General: NAD, Well-Appearing, Awake, Alert Oriented x3. Vital signs stable. ENT: No rhinorrhea or nasal congestion. Neck: FROM, no midline tenderness. Lungs: Clear to auscultation bilaterally without wheezes, rhonchi or rales. Normal excursion. Patient is able to speak in full sentences. Heart: HR: [92] Regular rhythm, S1-S2 present, no murmurs rubs or gallops. Abdomen: Non-distended. MSK/Extremities: No decrease ROM, No obvious deformities. No obvious cyanosis noted. Neuro: Normal Gait, Cranial Nerves II through XII Grossly Intact. Skin: No obvious rashes, bruising. Color Normal Appearing. Assessment/Plan: URI denies recent travel and known COVID exposure. P.o. ibuprofen 600 mg COVID swab obtained today Note for work provided Advised patient to quarantine for 14 days Discharge Disposition - Diagnosis URI (upper respiratory infection) Qualifiers: URI type: unspecified viral URI Qualified Code(s): J06.9 - Acute upper respiratory infection, unspecified - Discharge Dispostion Disposition: HOME Condition at time of disposition: Stable Last Admission D/C Date: 04/25/17 Decision to Admit order: No - Referrals Referrals: Juan F Barajas MD [Primary Care Provider] - - Patient Instructions Additional Instructions: Rest Alternate between acetaminophen and ibuprofen every 6 hours as needed for pain You will see a phone call within 2 to 3 days with COVID testing result - Post Discharge Activity Work/School Note: Back to Work
== END 2020-04-01 14:54 | disposition home or self-care (01) ==
LOC: JERFT 13:00
DX: J06.9 Acute upper respiratory infection, unspecified (principal)
CPT/HCPCS: 99283-25; U0003

== ENCOUNTER 2020-07-12 02:18 | Emergency (ER) | payer SELFPAY ==
[2020-07-12] MEDS ORDERED: IBUPROFEN 400 MG TABLET (FP) PO ONE ×2 (03:41→03:49)
[2020-07-12] MEDS ORDERED: METHOCARBAMOL 500 MG TABLET PO ONE (03:42)
[2020-07-12] MEDS ORDERED: METHOCARBAMOL 500 MG TABLET ONE (03:47)
[2020-07-12 05:32] VITALS: BP 148/87; PULSE 87; TEMP 98; BMI 31.2
== END 2020-07-12 04:35 | disposition home or self-care (01) ==
LOC: JER 02:18
DX: S13.4XXA Sprain of ligaments of cervical spine, initial encounter (principal)
CPT/HCPCS: 99284-25